=== PATIENT | female | born 1975 | race Caucasian/White ===

== ENCOUNTER 2018-01-06 03:39 | Emergency (ER) | payer OTHER, SELFPAY ==
[2018-01-06 03:50] VITALS: BP 132/93; PULSE 91; RESP 18; TEMP 36.5; O2SAT 98
[2018-01-06] MEDS: ALBUTEROL 2.5 MG/3 ML NEB (ADULT) INH (04:08)
--- NOTE | 2018-01-06 04:09 | ED_ITS ---
HPI - Asthma General Chief Complaint: Asthma Stated Complaint: difficulty breathing, has asthma Time Seen by Provider: 01/06/18 04:01 Source: patient Mode of arrival: ambulatory Limitations: no limitations History of Present Illness HPI Narrative: The patient has asthma, she uses a daily steroid inhaler, plus albuterol as a rescue inhaler. Over the last several days she has used the albuterol daily. Her normal is she does not require albuterol. With this she has had rhinorrhea for the past day. She denies sore throat, difficulty swallowing, or fever or chills. She does have increased wheezing, and occasional nonproductive cough. She has no associated chest pain or peripheral edema. She is a former smoker, she quit several years ago. There is no significant family history of asthma. Related Data Allergies Allergy/AdvReac Type Severity Reaction Status Date / Time No Known Drug Allergies Allergy Verified 01/06/18 04:18 Review of Systems Review of Systems All systems reviewed & are unremarkable except as noted in HPI and below Constitutional Denies chills, Denies fever(s), Denies headache(s), Denies lethargy and Denies weakness Eyes Denies eye discharge and Denies irritation ENT Ears, Nose, Mouth, and Throat: Denies dysphagia, Denies dizziness, Denies headache(s), Denies neck pain, Reports post nasal drip and Denies sore throat Cardiovascular Denies chest pain, Denies irregular heart rhythm, Denies lightheadedness, Denies palpitations, Reports dyspnea and Denies orthopnea Respiratory Reports cough, Reports dyspnea and Reports wheezing Gastrointestinal Gastrointestinal: Denies abdominal pain, Denies dysphagia and Denies nausea Genitourinary Denies dysuria Musculoskeletal Denies back pain and Denies neck pain Integumentary/Breasts Denies rash Neurologic Denies dizziness, Denies headache(s) and Denies weakness Endocrine Denies palpitations Allergic/Immunologic Reports wheezing Exam Initial Vital Signs Initial Vital Signs: Vital Signs Temperature 97.7 F 01/06/18 03:50 Pulse Rate 91 H 01/06/18 03:50 Respiratory Rate 18 01/06/18 03:50 Blood Pressure 132/93 H 01/06/18 03:50 Pulse Oximetry 98 01/06/18 03:50 Const General: cooperative and well developed Nutritional Appearance: well nourished Orientation: alert, awake, oriented x3 and not confused [facility] Head: normocephalic and atraumatic Ears: external ears normal and TM's normal bilaterally Nose: external nose normal and No nasal discharge Face and sinus: sinuses nontender, face symmetric, no sinus tenderness and No dry mucous membranes Mouth: oral mucosae normal and moist mucous membranes Teeth and gingiva: dentition normal Throat: tonsils normal and uvula midline Eyes General: appearance normal, both eyes and all related structures Eyelids: eyelids normal Conjunctivae: conjunctivae normal Sclera: sclerae normal Pupils: PERRL EOM: EOM intact bilaterally Neck Neck: normal visual inspection, full ROM, no meningeal signs and No lymphadenopathy Thyroid: thyroid normal Resp Effort & Inspection: normal respiratory effort, able to speak in complete sentences and other ( Initial wheezing has cleared with a single DuoNeb.) Cardio Rate: regular rate Rhythm: regular rhythm Heart Sounds: no click, no gallops, no murmurs and no rubs Pulses: normal peripheral pulses GI Inspection: non-distended Palpation: soft, no hepatosplenomegaly, No guarding, No pulsatile mass and No tender Auscultation: normal bowel sounds Skin General: no rashes or lesions noted Neuro General: alert, oriented x3, gait normal and no focal motor deficits Speech: speech normal Extrem General: No edema Psych Appearance: well kempt Mental Status: mental status grossly normal Attitude: cooperative Thought Content: normal and suicidality Judgment: judgment good [facility] Medical History Asthma (Acute) No significant past surgical history (Acute) Social History Smoking Status: Former smoker alcohol intake: former Course Orders Ordered: Discontinued Medications Albuterol (Ventolin) 2.5 mg INH NOW ONE Stop: 01/06/18 04:06 Last Admin: 01/06/18 04:08 Dose: 2.5 mg Vital Signs - 8 hr 01/06/18 03:50 01/06/18 04:29 Temperature 97.7 F Pulse Rate 91 H 89 Respiratory Rate 18 15 Blood Pressure 132/93 H 124/80 Pulse Oximetry 98 100 MDM - Asthma MDM Narrative Medical decision making narrative: She is clear after a single DuoNeb. She is concerned about using albuterol once daily. I assured her she could safely use the inhaler every 3-4 hours if necessary, especially for short-term use. Discharge Plan Departure Patient Disposition: Home Clinical Impression: Asthma with acute exacerbation Discharge Date/Time: 01/06/18 04:31 Interventions: ED Discharge Assessment Last Done: 01/06/18 04:29 Instructions: Asthma -- Adult Activity Restrictions/Additional Instructions: Continue your daily steroid inhaler. Use your Albuterol every 3-4 hours as needed for shortness of breath or wheezing. Sudafed is available by asking the pharmacist. I would recommend 25 mg every 6-8 hours as needed for sinus congestion. Return here as needed.
[2018-01-06 04:29] VITALS: BP 124/80; PULSE 89; RESP 15; O2SAT 100
[2018-01-06 04:52] VITALS: PULSE 72; RESP 15; O2SAT 98
== END 2018-01-06 04:31 | disposition home or self-care (01) ==
PROVIDERS: Emergency Provider Emergency Medicine
DX: J45.901 Unspecified asthma with (acute) exacerbation (principal)
CPT/HCPCS: 94150; 94640; 99283; J7613

== ENCOUNTER → 2020-05-19 13:55 | Outpatient (CLI) | payer OTHER, SELFPAY ==
--- NOTE | 2020-05-19 | DI.MRI.S_ITS ---
PROCEDURE: MR SHOULDER RT WO CON INDICATIONS: Pain in right shoulder TECHNIQUE: Noncontrast oblique coronal T2 fast spin echo with fat saturation, oblique sagittal T1 spin echo and T2 fast spin echo with fat saturation, axial T1 spin echo and T2 fast spin echo with fat saturation through the shoulder. COMPARISON: Outside Facility, RG, MRI SHOULDER RIGHT WO CONTRAST, 03/06/2019, 9:13. [facility], RG, XR SHOULDER 4V RIGHT, 08/11/2019, 13:24. FINDINGS: Image quality: Excellent. Rotator cuff: The supraspinatus, infraspinatus, and subscapularis tendons appear intact throughout. The supraspinatus tendon is slightly thickened with increased internal signal compatible mild tendinosis. Sagittal images demonstrate no muscle atrophy. Bones and bursae: No bone marrow contusions or fractures. No acromioclavicular joint degeneration. The acromion demonstrates conventional anatomy, without an os acromiale. No pathologic subacromial-subdeltoid or subcoracoid bursal fluid is present. Capsule and soft tissues: There is a small tear of the anterior-superior labrum (series 6, images 8-10). The long head of the biceps tendon demonstrates normal location and morphology. The rotator interval appears normal, without fibrosis. The coracohumeral ligament is normal in thickness. IMPRESSION: 1. Small anterior-superior labral tear. 2. Mild supraspinatus tendinosis. Dictated by: Almita Romo MD, PhD on 05/19/2020 at 17:01 Approved by: Almita Romo MD, PhD on 05/22/2020 at 15:55
== END ==
PROVIDERS: PCP Student in an Organized Health Care Education/Training Program; Referring Provider Student in an Organized Health Care Education/Training Program; Visit Provider Student in an Organized Health Care Education/Training Program
DX: M25.511 Pain in right shoulder (principal); S43.491A Other sprain of right shoulder joint, initial encounter
CPT/HCPCS: 73221